=== PATIENT | female | born 1955 | race Caucasian/White ===

== ENCOUNTER → 2023-02-04 11:14 | Outpatient (BNVA) | payer OTHER, SELFPAY | PROVIDERS: Family Provider Family Medicine; PCP Family Medicine; Referring Provider Dermatology; Visit Provider Nurse Practitioner Family | DX: M19.011 Primary osteoarthritis, right shoulder (principal) | CPT/HCPCS: 73030 ==

== ENCOUNTER → 2025-03-13 10:15 | Outpatient (BNVA) | payer MEDICARE, SELFPAY | PROVIDERS: Family Provider Family Medicine; PCP Family Medicine; Referring Provider Nurse Practitioner Family; Visit Provider Specialist | DX: M62.542 Muscle wasting and atrophy, not elsewhere classified, left hand (principal); R20.2 Paresthesia of skin | CPT/HCPCS: 95911 ==